=== PATIENT | female | born 1980 | race Caucasian/White ===

== ENCOUNTER 2017-10-29 15:05 | Observation (INO) | payer OTHER ==
[~2017-10-29] VITALS: Ht 156 cm; Wt 73.0 kg
[~2017-10-29 15:05] MED LIST: DSS100 PO; FERR-89 PO; IBUP-2071 PO; PREN1TAB80 PO
[2017-10-29 15:23] VITALS: BP 109/72
[2017-10-29] MEDS ORDERED: NIFE10 PO (16:14)
== END 2017-10-29 17:00 | disposition home or self-care (01) ==
LOC: 4S 15:05
PROVIDERS: ADMIT Specialist; ATTEND Specialist
DX: O26.893 Other specified pregnancy related conditions, third trimester (principal); R10.30 Lower abdominal pain, unspecified; Z3A.36 36 weeks gestation of pregnancy
CPT/HCPCS: 59025; G0378

== ENCOUNTER 2017-11-24 07:28 | Inpatient (IN) | payer OTHER ==
[~2017-11-24] VITALS: Ht 156 cm; Wt 76.2 kg
[~2017-11-24 07:28] MED LIST changes: +NIFE10 PO
[2017-11-24] MEDS ORDERED: RINGERS SOLUTION,LACTATED 1,000 ML IV PRN (07:57)
[2017-11-24] MEDS ORDERED: OXYGEN THERAPY IH SCH ×4 (08:00→20:00)
[2017-11-24] MEDS ORDERED: FentaNYL CITRATE-PF 100 MCG/2 ML VIAL IVP PRN ×3 (08:00→11:45)
[2017-11-24] MEDS ORDERED: METOCLOPRAMIDE HCL 5 MG/ML 2 ML VIAL IVP PRN (08:00)
[2017-11-24] MEDS ORDERED: CITRIC ACID/SODIUM CITRATE 30 ML SOLUTION UDCUP PO PRN (08:00)
[2017-11-24 08:55] LABS: BASOPHILS % (AUTO) 0.4 % (0.0-2.0); EOSINOPHILS % (AUTO) 0.2 % (1.0-6.0); HEMOGLOBIN 13.6 g/dL (12.0-16.0); LYMPHOCYTES # (AUTO) 1.6 K/uL (1.0-4.8); LYMPHOCYTES % (AUTO) 14.9 % (22.0-44.0); MEAN CORPUSCULAR HEMOGLOBIN 32.4 pg (26.0-34.0); MEAN CORPUSCULAR HGB CONC 34.8 G/dL (31.0-37.0); MEAN CORPUSCULAR VOLUME 93 fL (80-100); MONOCYTES # (AUTO) 0.5 K/uL (0.1-1.0); MONOCYTES % (AUTO) 4.9 % (2.0-9.0); NEUTROPHILS # (AUTO) 8.6 K/uL (1.8-7.7); NEUTROPHILS % (AUTO) 79.6 % (40.0-70.0); PLATELET COUNT (AUTO) 111 K/uL (150-450); RED BLOOD CELL COUNT(AUTO) 4.19 MIL/uL (4.00-5.20); RED CELL DISTRIBUTION WIDTH 13.7 % (11.5-14.5)
[2017-11-24] MEDS ORDERED: AMPICILLIN SODIUM 2 GM/NS 100 ML IV ONE (09:00)
[2017-11-24] MEDS ORDERED: OXYTOCIN 30 UNITS/LACT RINGERS 500 ML IV ONE (09:32)
[2017-11-24] MEDS: RINGERS SOLUTION,LACTATED 1,000 ML IV SCH ×2 (09:37→10:26)
[2017-11-24] MEDS ORDERED: LIDOCAINE HCL/PF 2% 5 ML VIAL ONE (09:47)
[2017-11-24] MEDS ORDERED: ROPIVACAINE HCL/PF 0.2% 100 ML ED ONE (09:47)
[2017-11-24] MEDS ORDERED: OXYTOCIN 30 UNITS/LACT RINGERS 500 ML IV PRN (10:01)
[2017-11-24] MEDS ORDERED: LIDOCAINE HCL 2%/EPI 1:200,000/PF 20 ML VIAL ONE (10:17)
[2017-11-24] MEDS ORDERED: CeFAZolin 2 GM/DEXTROSE 50 ML IV ONE (10:44)
[2017-11-24] MEDS ORDERED: RINGERS SOLUTION,LACTATED 1,000 ML IV ONE (10:45)
[2017-11-24] MEDS ORDERED: LANOLIN 7 GM OINTMENT TP PRN (11:30)
[2017-11-24] MEDS ORDERED: METHYLERGONOVINE MALEATE 0.2 MG TABLET PO PRN (11:30)
[2017-11-24] MEDS ORDERED: ACETAMINOPHEN 1000 MG/ISO-OSM 100 ML IV ONE ×2 (11:45→12:30)
[2017-11-24] MEDS ORDERED: MEPERIDINE-PF 25 MG/ML SYRINGE IVP PRN (11:45)
[2017-11-24] MEDS ORDERED: NALOXONE HCL 0.4 MG/ML VIAL IVP PRN (11:45)
[2017-11-24] MEDS ORDERED: DiphenhydrAMINE HCL 50 MG/ML VIAL IVP PRN ×2 (11:45)
[2017-11-24] MEDS ORDERED: ONDANSETRON HCL 4 MG/2 ML VIAL IVP PRN ×2 (11:45)
[2017-11-24] MEDS ORDERED: NALBUPHINE HCL 10 MG/ML VIAL IVP PRN ×3 (11:45)
[2017-11-24] MEDS ORDERED: MORPHINE SULFATE/PF 0.5 MG/ML 10 ML AMP IVP ONE (12:00)
[2017-11-24] MEDS ORDERED: FentaNYL CITRATE-PF 100 MCG/2 ML VIAL IVP ONE (12:00)
[2017-11-24 12:20] VITALS: BP 137/65
[2017-11-24] MEDS ORDERED: AMPICILLIN SODIUM 1 GM/NS 50 ML IV SCH (13:00)
[2017-11-24] MEDS: DEXTROSE 5%-LACTATED RINGERS 1,000 ML IV SCH (14:48)
[2017-11-24] MEDS: CeFAZolin 2 GM/DEXTROSE 50 ML IV SCH (18:39)
[2017-11-24] MEDS: ACETAMINOPHEN 1000 MG/ISO-OSM 100 ML IV PRN (22:27)
[2017-11-25] MEDS: DEXTROSE 5%-LACTATED RINGERS 1,000 ML IV SCH (00:32)
[2017-11-25] MEDS: FentaNYL CITRATE-PF 100 MCG/2 ML VIAL IVP PRN ×2 (01:30→08:13)
[2017-11-25] MEDS: CeFAZolin 2 GM/DEXTROSE 50 ML IV SCH (02:51)
[2017-11-25 06:21] LABS: BASOPHILS % (AUTO) 0.4 % (0.0-2.0); EOSINOPHILS % (AUTO) 0.3 % (1.0-6.0); HEMATOCRIT 30.6 % (36-46); HEMOGLOBIN 10.8 g/dL (12.0-16.0); LYMPHOCYTES # (AUTO) 1.3 K/uL (1.0-4.8); LYMPHOCYTES % (AUTO) 12.9 % (22.0-44.0); MEAN CORPUSCULAR HEMOGLOBIN 34.1 pg (26.0-34.0); MEAN CORPUSCULAR HGB CONC 35.4 G/dL (31.0-37.0); MEAN CORPUSCULAR VOLUME 96 fL (80-100); MONOCYTES # (AUTO) 0.6 K/uL (0.1-1.0); MONOCYTES % (AUTO) 6.1 % (2.0-9.0); NEUTROPHILS # (AUTO) 8.2 K/uL (1.8-7.7); NEUTROPHILS % (AUTO) 80.3 % (40.0-70.0); PLATELET COUNT (AUTO)-OB 101 K/uL (150-450); RED BLOOD CELL COUNT(AUTO) 3.17 MIL/uL (4.00-5.20); RED CELL DISTRIBUTION WIDTH 13.6 % (11.5-14.5)
[2017-11-25] MEDS: ACETAMINOPHEN 1000 MG/ISO-OSM 100 ML IV PRN (06:22)
[2017-11-25] MEDS: SENNA/DOCUSATE SODIUM 187-50 MG TABLET PO PRN ×2 (07:56→21:00)
[2017-11-25] MEDS: MAGNESIUM HYDROXIDE SUSPENSION 30 ML UDCUP PO PRN ×2 (07:56→21:00)
[2017-11-25] MEDS: OxyCODONE HCL/ACETAMINOPHEN 5-325 MG TABLET PO PRN ×4 (11:04→18:22)
[2017-11-25] MEDS: IBUPROFEN 800 MG TABLET PO PRN ×2 (11:04→18:22)
[2017-11-25] MEDS ORDERED: IBUP-2070 PO (15:58)
[2017-11-26] MEDS: OxyCODONE HCL/ACETAMINOPHEN 5-325 MG TABLET PO PRN ×3 (01:34→15:34)
[2017-11-26] MEDS: IBUPROFEN 800 MG TABLET PO PRN ×2 (07:46→17:53)
[2017-11-26] MEDS: MAGNESIUM HYDROXIDE SUSPENSION 30 ML UDCUP PO PRN (09:10)
[2017-11-26] MEDS ORDERED: DSS100 PO (09:33)
[2017-11-26] MEDS ORDERED: IBUP-2071 PO (09:41)
[2017-11-26] MEDS ORDERED: HYDR-309 PO (09:46)
[2017-11-26] MEDS: SENNA/DOCUSATE SODIUM 187-50 MG TABLET PO PRN (15:33)
== END 2017-11-26 18:55 | disposition home or self-care (01) | DRG 766 ==
LOC: 4S 07:28 → OBSVTOIN 07:28 → 4S 13:57
PROVIDERS: ADMIT Specialist; ATTEND Specialist
PROC: 10D00Z1 Extraction of Products of Conception, Low, Open Approach (ICD-10-PCS; principal; 2017-11-24)
DX: O32.1XX0 Maternal care for breech presentation, not applicable or unspecified (principal); O62.2 Other uterine inertia; O76 Abnormality in fetal heart rate and rhythm complicating labor and delivery; Z37.0 Single live birth; Z3A.39 39 weeks gestation of pregnancy
CPT/HCPCS: 86850; 86900; 86901; J0131; J0290; J0690; J2274; J2590; J2765; J2795; J3010; J3490; J7120